=== PATIENT | female | born 1985 | race Hispanic/Latino ===

== ENCOUNTER 2018-12-15 05:11 | Emergency (ER) | payer BC ==
[2018-12-15 06:34] VITALS: BMI 30.2
[2018-12-15] MEDS ORDERED: Magnesium Sulfate 4 gm/100 ml 4 GM/100 ML BAG IV ONE (07:12)
[2018-12-15] MEDS: Magnesium Sul 40GM/1L SW 40 GM/1,000 ML ML IV ONE (07:25)
[2018-12-15] MEDS: Lactated Ringer's 1,000 ML IV SCH (07:25)
[2018-12-15] MEDS ORDERED: Magnesium Sul 40GM/1L SW 40 GM/1,000 ML ML IV ONE (07:25)
--- NOTE | 2018-12-15 07:51 | OBHP ---
Datetime: 12/15/2018 06:58 IP Adm Impression: , intrauterine IP Admit Plan: Observation/Evaluation Admit Comment, IP Provider: 33-year-old at 31.5 EGA of twin IUP (di-di) presents with PPROM a few hours prior to presentation. She describes being asleep and waking up to a pool of odorless, cl ear fluid in bed but no leaking since. Denies painful contractions and vaginal bleeding. Endorses goo d movement from both fetuses. She was previously hospitalized at [facility] at 28 weeks EGA for labor. She is a patient of Dr Forte. OBGYN: Dr Forte PMH: denies OBHx: 1 x ab Meds: denies Surgical Hx: denies Social: denies Labs: first trimester labs negative ROS: All other systems reviewed and negative unless noted in HPI PE: VS: WNL Gen: in no acute distress Resp: no resp distress CV: RRR, S1 S2 Abd: IUP, no tenderness to palpation Extremities: no pitting edema Pelvic: Speculum exam: no pooling noted, nitrazine negative A+P: 33-year-old at 31.5 EGA of twin IUP (di-di) presents with PPROM a few hours prior to presentation. -Continuous EFM -Abd U/S w/ ALENA -Plan for transfer to [facility] for appropriate level of care Case seen and discussed with Dr Jann Barillas PGY1 The patient was ssen with the resident I agree with the note pt to be transferred to [facility] for N ICU services discussed POC with MFM Pelvic Type - PN: Adequate Extremities - PN: Normal Abdomen - PN: Normal Back - PN: Normal Breast - PN: Not Done Lungs - PN: Normal Heart - PN: Normal Thyroid - PN: Not Done Neurologic - PN: Not Done HEENT - PN: Normal General - PN: Normal Pool Provider: Negative Nitrazine Provider: Negative Vital Signs Provider: Reviewed; Within Normal Limits IP Chief Complaint: Suspected ruptured membranes Genitourinary Exam: Normal DTRs - PN: Not Done
[2018-12-15] MEDS: Betamethasone Soluspan 30 mg/5mL Inj Susp IM ONE (08:09)
[2018-12-15] MEDS: AMPicillin 2 GM in Sodium Chloride 0.9% 100 ML IVPB SCH (08:27)
--- NOTE | 2018-12-15 09:51 | US ---
Date of service: 12/15/2018 PROCEDURE: Limited obstetrical ultrasound examination HISTORY: Suspicion for PPROM COMPARISON: Not available TECHNIQUE: Evaluation was performed in a grossly limited fashion specifically as per the request of the referring physician. The examination was performed solely for evaluation of ALENA. FINDINGS: There is a twin intrauterine gestation. presentation was not evaluated. Placenta was not evaluated. biometry was not performed. heart rate for fetus a is 147 beats per minute. heart rate for fetus B is 145 beats per minute. ALENA for fetus a is 7.8 cm. Without knowledge of age, the normal range of ALENA cannot be determined. ALENA for fetus B is 9.8 cm. IMPRESSION: Twin intrauterine gestation. Grossly limited examination. ALENA as reported above.
[2018-12-15 14:31] VITALS: BP 121/80; PULSE 68; RESP 18; TEMP 99.2; O2SAT 100
== END 2018-12-15 10:29 | disposition designated cancer center or children's hospital (05) ==
LOC: H.EROB2 05:11
DX: O34.63 Maternal care for abnormality of vagina, third trimester (principal); N89.8 Other specified noninflammatory disorders of vagina; Z3A.31 31 weeks gestation of pregnancy; O30.003 Twin pregnancy, unspecified number of placenta and unspecified number of amniotic sacs, third trimester
CPT/HCPCS: 76815; 96372; 99284; J0290; J0702; J7120